=== PATIENT | male | born 1985 | race Caucasian/White ===

== ENCOUNTER 2018-04-12 23:44 | Emergency (ER) | payer OTHER ==
[~2018-04-12] VITALS: Ht 172.7 cm; Wt 109.0 kg
[2018-04-12 23:51] VITALS: BP 125/67
== END 2018-04-13 02:06 | disposition home or self-care (01) ==
LOC: ED 04-13 02:00
DX: R05 Cough (principal)
CPT/HCPCS: 99283

== ENCOUNTER 2018-07-11 04:47 | Emergency (ER) | payer OTHER ==
[~2018-07-11] VITALS: Ht 172.7 cm; Wt 105.1 kg
[2018-07-11] MEDS ORDERED: KETOROLAC 30 MG/1 ML ONE (05:12)
[2018-07-11] MEDS ORDERED: KETOROLAC 30 MG/1 ML IM ONE (05:30)
--- NOTE | 2018-07-11 06:13 | NUR ---
PT IS VERY TIRED. PT RESTING WITH EYES CLOSED. DR HERNANDEZ AWARE. [facility] AWARE. ALBINA ARAUJO HAS SEEN PATIENT. PT READY FOR D/C WHEN HE CAN AMBULATE.
--- NOTE | 2018-07-11 06:54 | NUR ---
bedside report given to RALPH Ayala
--- NOTE | 2018-07-11 07:17 | NUR ---
PT SLEEPING AROUSES TO PAIN STIMULI BUT MOSTLY SLEEPING. PT POOR HISTORIAN AND UNCOPOPERATIVE WITH ASSESSMENT.
--- NOTE | 2018-07-11 07:30 | NUR ---
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 SECURITY PICKED UP AND LABELED
--- NOTE | 2018-07-11 08:44 | NUR ---
PT MOSTLY SLEEPING. AROUSES TO PAIN STIMULI. WILL CONT TO MONITOR
[2018-07-11 09:46] LABS: BASOPHILS # (AUTO) 0.05 x10^3/uL (0-0.1); BASOPHILS % (AUTO) 1 % (0-1); EOSINOPHILS # (AUTO) 0.22 x10^3/uL (0-0.4); EOSINOPHILS % (AUTO) 2 % (1-7); LYMPHOCYTES # (AUTO) 2.84 x10^3/uL (1-3.4); LYMPHOCYTES % (AUTO) 29 % (22-44); MD NO; MEAN CORPUSCULAR HEMOGLOBIN 28.8 pg (27.5-34.5); MEAN CORPUSCULAR HGB CONC 33.2 g/dL (33.2-36.2); MEAN CORPUSCULAR VOLUME 86.7 fL (81-97); MEAN PLATELET VOLUME 7.1 fL (7.4-10.4); MONOCYTES # (AUTO) 0.64 x10^3/uL (0.2-0.8); MONOCYTES % (AUTO) 7 % (2-9); NEUTROPHILS # (AUTO) 5.91 x10^3/uL (1.8-6.8); NEUTROPHILS % (AUTO) 61 % (42-75); PLATELET COUNT 352 x10^3/uL (130-400); RED BLOOD COUNT 4.44 x10^6/uL (4.38-5.82); RED CELL DISTRIBUTION WIDTH 13.7 % (9.4-14.8)
[2018-07-11 09:57] LABS: ALBUMIN 3.4 g/dL (3.4-5.0); ANION GAP 4 mmol/L (5-15); CALCIUM 8.6 mg/dL (8.5-10.1); CHLORIDE 110 mmol/L (98-107)
[2018-07-11 10:00] LABS: ALANINE AMINOTRANSFERASE 29 U/L (12-78); ALKALINE PHOSPHATASE 87 U/L (45-117); BILIRUBIN,TOTAL 0.2 mg/dL (0.2-1.0); TOTAL PROTEIN 6.9 g/dL (6.4-8.2)
--- NOTE | 2018-07-11 10:44 | NUR ---
ATTEMPT TO COLLECT URINE AT THIS TIME FAIL. PT VERBALIZES UNDERSTANDING OF POC. PT AROUSES TO TOUCH
[2018-07-11 11:41] LABS: AMPHETAMINE SCREEN, URINE Negative (Negative); BARBITURATE SCREEN, URINE Negative (Negative); BENZODIAZEPINE SCREEN, URINE Negative (Negative); CANNABINOID SCREEN, URINE Positive (Negative); COCAINE SCREEN, URINE Negative (Negative); METHADONE SCREEN, URINE Negative (Negative); OPIATE SCREEN, URINE Negative (Negative)
--- NOTE | 2018-07-11 12:15 | NUR ---
TASK RN: PT IS RESTING IN BED WITHOUT DISTRESS. PT HAS EQUAL CHEST RISE AND VSS ON MONITOR.
--- NOTE | 2018-07-11 12:37 | NUR ---
PT AMBULATED IN THE HALLWAY WITHOUT ASSISTANCE. STEADY GAIT. PT REPORTS HE IS STAYING AT THE [facility].
[2018-07-11 12:44] VITALS: BP 104/71
--- NOTE | 2018-07-11 12:45 | NUR ---
pt escorted to md desk, taxi called. pt has taxi voucher. 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 pt verbalizes understanding. pt will be escorted to security by registration staff
== END 2018-07-11 12:47 | disposition home or self-care (01) ==
LOC: ED 06:14
DX: S86.811A Strain of other muscle(s) and tendon(s) at lower leg level, right leg, initial encounter (principal); R51 Headache; X58.XXXA Exposure to other specified factors, initial encounter; Y93.89 Activity, other specified; Y92.89 Other specified places as the place of occurrence of the external cause; Y99.8 Other external cause status
CPT/HCPCS: 36415; 70450; 80053; 80307; 85025; 93971; 96372; 99284; J1885

== ENCOUNTER 2018-07-11 19:38 | Emergency (ER) | payer SELFPAY ==
[~2018-07-11] VITALS: Ht 172.7 cm; Wt 105.0 kg
--- NOTE | 2018-07-11 19:43 | NUR ---
NIL X1
[2018-07-11 19:52] VITALS: BP 127/82
== END 2018-07-11 20:51 | disposition home or self-care (01) ==
LOC: ED 20:00
DX: M79.672 Pain in left foot (principal); M79.671 Pain in right foot
CPT/HCPCS: 99281

== ENCOUNTER 2018-07-12 02:38 | Emergency (ER) | payer SELFPAY ==
[~2018-07-12] VITALS: Ht 172.7 cm; Wt 104.7 kg
[2018-07-12 02:43] VITALS: BP 111/78
--- NOTE | 2018-07-12 02:55 | NUR ---
PT AMBULATED BACK TO ROOM WITHOUT DIFFICULTY.
[2018-07-12] MEDS ORDERED: IBUPROFEN 600 MG TABLET PO ONE (03:00)
[2018-07-12] MEDS ORDERED: CEPHALEXIN 500 MG CAPSULE PO ONE (03:00)
[2018-07-12] MEDS ORDERED: SULFAMETH./TRIMETHOPRIM DS 800MG/160MG TABLET PO ONE (03:00)
--- NOTE | 2018-07-12 03:06 | NUR ---
ERP AT BS. REPORTED TO TRISTEN ROSAS.
--- NOTE | 2018-07-12 03:14 | NUR ---
PT D/C WITH D/C SUMMARY. ALL QUESTIONS ANSWERED. PT AMBULATES TO REGISTRATION DESK WITH STEADY GAIT FOR D/C HOME.
== END 2018-07-12 03:18 | disposition home or self-care (01) ==
LOC: ED 03:11
DX: N39.9 Disorder of urinary system, unspecified (principal)
CPT/HCPCS: 99281